=== PATIENT | female | born 1970 | race Caucasian/White ===

== ENCOUNTER → 2020-09-25 | Outpatient (CLI) | payer OTHER ==
--- NOTE | 2020-09-25 17:54 | RAD ---
EXAM: Right fourth finger, 3 views. HISTORY: Pain. COMPARISON: None. FINDINGS: 3 views of the right fourth finger are obtained. There is no fracture, dislocation or sublu xation. There is no foreign body. IMPRESSION: No acute osseous finding. Electronically signed by: Marcie Abebe MD (09/25/2020 5:51 PM) [facility]
== END ==
LOC: RAD 17:13
PROVIDERS: ATTEND Nurse Practitioner Family
DX: M79.644 Pain in right finger(s) (principal)
CPT/HCPCS: 73140

== ENCOUNTER → 2021-02-05 | Outpatient (CLI) | payer OTHER ==
--- NOTE | 2021-02-05 13:51 | RAD ---
EXAM: Right hand, 3 views. HISTORY: Pain. COMPARISON: None. FINDINGS: 3 views of the right hand are obtained. There is no fracture, dislocation or subluxation. T here is no radiodense foreign body. IMPRESSION: No acute osseous finding. Electronically signed by: Marcie Abebe MD (02/05/2021 1:48 PM) [id number]
== END ==
LOC: RAD 12:20
PROVIDERS: ATTEND Orthopaedic Surgery
DX: M79.641 Pain in right hand (principal)
CPT/HCPCS: 73130